=== PATIENT | male | born 1970 | race Caucasian/White ===

== ENCOUNTER 2016-08-11 15:56 | Emergency (ER) | payer SELFPAY ==
[~2016-08-11] VITALS: Ht 182.9 cm; Wt 80.0 kg
[2016-08-11 16:01] VITALS: BP 112/80
== END 2016-08-11 20:26 | disposition left against medical advice (07) ==
LOC: ER 16:18
DX: S01.412A Laceration without foreign body of left cheek and temporomandibular area, initial encounter (principal); H57.12 Ocular pain, left eye; X58.XXXA Exposure to other specified factors, initial encounter; Y93.89 Activity, other specified; Y92.9 Unspecified place or not applicable; Y99.8 Other external cause status
CPT/HCPCS: 99281; 99283